=== PATIENT | male | born 1955 | race Caucasian/White ===

== ENCOUNTER 2017-09-09 10:48 | Inpatient (IN) | payer OTHER ==
[2017-09-09 11:48] LABS: BILIRUBIN,URINE SMALL (NEG); CLARITY,URINE TURBID; COLOR,URINE RED; GLUCOSE,URINE NEGATIVE (NEG); NITRITE,URINE POSITIVE (NEG); PROTEIN,URINE 100 mg/dL (NEG-TRACE)
[2017-09-09] MEDS: IV NORMAL SALINE 1000ML BAG 1,000 ML IV ×2 (11:59→15:23)
[2017-09-09 12:04] LABS: BACTERIA,URINE MODERATE /HPF (0-FEW); RBC,URINE >40 /HPF (0-2); WBC,URINE TNTC /HPF (0-4)
[2017-09-09 12:14] LABS: ADD MAN DIFF? NO
[2017-09-09 12:17] LABS: BASO % 1 % (0-3); EOS # 0.1 x10^3/uL (0.0-0.7); EOS % 1 % (0-3); HEMATOCRIT 23.2 % (39.0-53.0); HEMOGLOBIN 8.1 g/dL (13.0-17.5); LYMPH # 1.4 x10^3/uL (1.0-4.8); LYMPH % 16 % (24-48); MEAN CORPUSCULAR HEMOGLOBIN 33 pg (25-35); MEAN CORPUSCULAR HGB CONC 35 g/dL (31-37); MEAN CORPUSCULAR VOLUME 95 fL (79-100); MONO # 0.8 x10^3/uL (0.0-1.1); MONO % 9 % (0-9); NEUT # 6.6 x10^3uL (1.8-7.7); NEUT % 74 % (31-73); PLATELET COUNT 168 x10^3/uL (140-400); RED BLOOD COUNT 2.45 x10^6/uL (4.30-5.70); RED CELL DISTRIBUTION WIDTH 24.9 % (11.5-14.5)
[2017-09-09 12:26] LABS: INR 1.8 (0.8-1.1); PARTIAL THROMBOPLASTIN TIME 38 SEC (24-38); PROTHROMBIN TIME PATIENT 20.5 SEC (11.7-14.0)
[2017-09-09 12:27] LABS: ANION GAP 10 (6-14); BLOOD UREA NITROGEN 25 mg/dL (8-26); BUN/CREATININE RATIO 13 (6-20); CALCIUM 8.8 mg/dL (8.5-10.1); CARBON DIOXIDE 23 mmol/L (21-32); CHLORIDE 97 mmol/L (98-107); GFR 33.8; GLUCOSE 90 mg/dL (70-99); POTASSIUM 4.5 mmol/L (3.5-5.1); SODIUM 130 mmol/L (136-145)
[2017-09-09 12:35] LABS: LACTIC ACID 2.1 mmol/L (0.4-2.0)
[2017-09-09 12:41] LABS: ALBUMIN 2.3 g/dL (3.4-5.0); ALBUMIN/GLOBULIN RATIO 0.5 (1.0-1.7); ALK PHOS 99 U/L (46-116); ALT (SGPT) 27 U/L (16-63); AST (SGOT) 93 U/L (15-37); MAGNESIUM 1.5 mg/dL (1.8-2.4); TOTAL BILIRUBIN 3.9 mg/dL (0.2-1.0); TOTAL PROTEIN 7.3 g/dL (6.4-8.2)
[2017-09-09 12:42] LABS: TROPONINI < 0.017 ng/mL (0.000-0.055)
[2017-09-09 12:44] LABS: CKMB MASS 5.5 ng/mL (0.0-3.6)
[2017-09-09 12:44] LABS: NT-PRO BNP 1633 pg/mL (0-124)
[2017-09-09 12:45] LABS: CKMB INDEX 0.4 % (0-4); CREATINE KINASE 1254 U/L (39-308)
[2017-09-09 12:55] LABS: ANISOCYTOSIS MOD; PLT ESTIMATE ADEQUATE (ADEQUATE); POLYCHROMASIA SLIGHT
[2017-09-09] MEDS: PIPERACILLIN/TAZOBACTAM 4.5 GM in IV NORMAL SALINE 100ML 100 ML IV (14:33)
[2017-09-09] MEDS ORDERED: ACETAMINOPHEN 500 MG TABLET PO (15:00)
[2017-09-09] MEDS ORDERED: ENOXAPARIN 40 MG/0.4 ML SYRINGE. SQ (15:00)
[2017-09-09 15:24] LABS: BARBITURATES NEG (NEG); BENZODIAZEPINES POS (NEG); CANNABINOIDS NEG (NEG); COCAINE NEG (NEG); METHADONE NEG (NEG); OPIATES NEG (NEG); PHENCYCLIDINE NEG (NEG)
[2017-09-09] MEDS: MAGNESIUM SULFATE 2GM 50 ML IV (15:26)
[2017-09-09 15:27] LABS: AMPHETAMINE/METHAMPHETAMINE NEG (NEG); ETHANOL, URINE NEG (NEG)
[2017-09-09 15:30] LABS: ETHANOL < 10 mg/dL (0-10)
[2017-09-09 16:13] LABS: LACTIC ACID 1.5 mmol/L (0.4-2.0)
[2017-09-09] MEDS: VANCOMYCIN 125 MG/2.5 ML ORAL SOLUTION. PO ×2 (16:46→21:48)
[2017-09-09] MEDS: TEMAZEPAM 7.5 MG CAPSULE PO (22:05)
[2017-09-10] MEDS: IV NORMAL SALINE 1000ML BAG 1,000 ML IV ×3 (00:37→20:19)
[2017-09-10 05:19] LABS: ANION GAP 9 (6-14); BLOOD UREA NITROGEN 23 mg/dL (8-26); CARBON DIOXIDE 23 mmol/L (21-32); CHLORIDE 101 mmol/L (98-107); CREATINE KINASE 625 U/L (39-308); CREATININE 1.7 mg/dL (0.7-1.3); GFR 40.8; GLUCOSE 96 mg/dL (70-99); MAGNESIUM 1.7 mg/dL (1.8-2.4); POTASSIUM 4.1 mmol/L (3.5-5.1); SODIUM 133 mmol/L (136-145)
[2017-09-10 06:25] LABS: SEDIMENTATION RATE 32 (0-15)
[2017-09-10] MEDS: VANCOMYCIN 125 MG/2.5 ML ORAL SOLUTION. PO ×4 (10:57→20:18)
[2017-09-10] MEDS: LACTOBACILLUS RHAMNOSUS GG 1 CAPSULE. PO ×2 (10:57→20:18)
[2017-09-10] MEDS: FLUCONAZOLE 100 MG TABLET. PO (10:57)
[2017-09-10] MEDS: NYSTATIN TOPICAL POWDER 15GM BOTTLE. TP ×2 (10:58→21:00)
[2017-09-10] MEDS: MEROPENEM 500 MG in IV NORMAL SALINE 50ML 50 ML IV ×3 (10:58→22:50)
[2017-09-10 14:32] LABS: MRSA BY PCR Positive (Negative)
[2017-09-10] MEDS: ACETAMINOPHEN 500 MG TABLET PO ×2 (15:03→20:30)
[2017-09-10] MEDS: TEMAZEPAM 7.5 MG CAPSULE PO (20:30)
[2017-09-11] MEDS: MEROPENEM 500 MG in IV NORMAL SALINE 50ML 50 ML IV ×3 (06:12→21:26)
[2017-09-11] MEDS: IV NORMAL SALINE 1000ML BAG 1,000 ML IV ×2 (08:29→21:33)
[2017-09-11] MEDS: VANCOMYCIN 125 MG/2.5 ML ORAL SOLUTION. PO ×4 (08:30→21:26)
[2017-09-11] MEDS: FLUCONAZOLE 100 MG TABLET. PO (08:31)
[2017-09-11] MEDS: LACTOBACILLUS RHAMNOSUS GG 1 CAPSULE. PO ×2 (08:31→21:26)
[2017-09-11] MEDS: VITS A & D/LANOLIN TOPICAL OINTMENT 56GM TUBE. TP ×2 (14:47→23:00)
[2017-09-11] MEDS: NYSTATIN TOPICAL POWDER 15GM BOTTLE. TP ×4 (14:48→23:00)
[2017-09-11] MEDS: ACETAMINOPHEN 500 MG TABLET PO (17:56)
[2017-09-11] MEDS: TEMAZEPAM 7.5 MG CAPSULE PO (21:26)
[2017-09-12] MEDS: IV NORMAL SALINE 1000ML BAG 1,000 ML IV ×3 (05:57→21:29)
[2017-09-12] MEDS: MEROPENEM 500 MG in IV NORMAL SALINE 50ML 50 ML IV (05:57)
[2017-09-12 06:47] LABS: C DIFF BY PCR Positive (Negative)
[2017-09-12] MEDS: VANCOMYCIN 125 MG/2.5 ML ORAL SOLUTION. PO ×4 (08:55→21:28)
[2017-09-12] MEDS: NYSTATIN TOPICAL POWDER 15GM BOTTLE. TP ×2 (08:55→21:28)
[2017-09-12] MEDS: LACTOBACILLUS RHAMNOSUS GG 1 CAPSULE. PO ×2 (08:55→21:30)
[2017-09-12] MEDS: FLUCONAZOLE 100 MG TABLET. PO (08:55)
[2017-09-12] MEDS: ACETAMINOPHEN 500 MG TABLET PO (11:32)
[2017-09-12] MEDS: CEFTOLOZANE/TAZOBACTAM 1,500 MG in IV NORMAL SALINE 100ML 100 ML IV (14:45)
[2017-09-12] MEDS: TEMAZEPAM 7.5 MG CAPSULE PO (21:34)
[2017-09-12] MEDS: CEFTAZIDIME/AVIBACTAM 2.5 GM in IV NORMAL SALINE 250ML 250 ML IV (21:34)
[2017-09-13] MEDS: ACETAMINOPHEN 500 MG TABLET PO (00:18)
[2017-09-13] MEDS: MAG HYDROX/ALUMINUM HYD/SIMETH 30 ML ORAL.SUSP PO ×2 (00:18→19:58)
[2017-09-13] MEDS: ONDANSETRON PF 4 MG/2 ML VIAL. IV (00:19)
[2017-09-13] MEDS: CEFTAZIDIME/AVIBACTAM 2.5 GM in IV NORMAL SALINE 250ML 250 ML IV ×3 (05:35→22:07)
[2017-09-13] MEDS: MORPHINE SULFATE 2 MG/ML DISP.SYRIN. IV ×4 (05:35→19:59)
[2017-09-13] MEDS: LACTOBACILLUS RHAMNOSUS GG 1 CAPSULE. PO ×2 (09:29→20:02)
[2017-09-13] MEDS: NYSTATIN TOPICAL POWDER 15GM BOTTLE. TP ×2 (09:29→20:02)
[2017-09-13] MEDS: VANCOMYCIN 125 MG/2.5 ML ORAL SOLUTION. PO ×4 (09:29→20:01)
[2017-09-13] MEDS: FLUCONAZOLE 100 MG TABLET. PO (09:29)
[2017-09-13] MEDS: IV NORMAL SALINE 1000ML BAG 1,000 ML IV ×2 (09:30→18:09)
[2017-09-13] MEDS: TEMAZEPAM 7.5 MG CAPSULE PO (23:29)
[2017-09-14] MEDS: IV NORMAL SALINE 1000ML BAG 1,000 ML IV ×3 (06:23→20:05)
[2017-09-14] MEDS: CEFTAZIDIME/AVIBACTAM 2.5 GM in IV NORMAL SALINE 250ML 250 ML IV ×3 (06:23→23:00)
[2017-09-14] MEDS: FLUCONAZOLE 100 MG TABLET. PO (08:44)
[2017-09-14] MEDS: VANCOMYCIN 125 MG/2.5 ML ORAL SOLUTION. PO ×4 (08:44→20:06)
[2017-09-14] MEDS: LACTOBACILLUS RHAMNOSUS GG 1 CAPSULE. PO ×2 (08:44→20:06)
[2017-09-14] MEDS: NYSTATIN TOPICAL POWDER 15GM BOTTLE. TP ×2 (08:44→23:11)
[2017-09-14] MEDS: MORPHINE SULFATE 2 MG/ML DISP.SYRIN. IV ×3 (08:45→20:05)
[2017-09-14] MEDS: ONDANSETRON PF 4 MG/2 ML VIAL. IV (22:59)
[2017-09-14] MEDS: TEMAZEPAM 7.5 MG CAPSULE PO (23:10)
[2017-09-15] MEDS: CEFTAZIDIME/AVIBACTAM 2.5 GM in IV NORMAL SALINE 250ML 250 ML IV ×3 (05:45→21:20)
[2017-09-15] MEDS: FLUCONAZOLE 100 MG TABLET. PO (09:21)
[2017-09-15] MEDS: VANCOMYCIN 125 MG/2.5 ML ORAL SOLUTION. PO ×4 (09:21→21:20)
[2017-09-15] MEDS: NYSTATIN TOPICAL POWDER 15GM BOTTLE. TP ×2 (09:21→21:19)
[2017-09-15] MEDS: LACTOBACILLUS RHAMNOSUS GG 1 CAPSULE. PO ×2 (09:21→20:26)
[2017-09-15] MEDS: IV NORMAL SALINE 1000ML BAG 1,000 ML IV ×2 (10:36→21:20)
[2017-09-15] MEDS: MORPHINE SULFATE 2 MG/ML DISP.SYRIN. IV ×2 (15:50→20:26)
[2017-09-15] MEDS: ONDANSETRON PF 4 MG/2 ML VIAL. IV (20:26)
[2017-09-16] MEDS: MORPHINE SULFATE 2 MG/ML DISP.SYRIN. IV ×4 (02:38→20:09)
[2017-09-16] MEDS: CEFTAZIDIME/AVIBACTAM 2.5 GM in IV NORMAL SALINE 250ML 250 ML IV ×3 (06:07→21:53)
[2017-09-16] MEDS: IV NORMAL SALINE 1000ML BAG 1,000 ML IV ×2 (07:00→16:04)
[2017-09-16] MEDS: LACTOBACILLUS RHAMNOSUS GG 1 CAPSULE. PO ×2 (08:22→20:08)
[2017-09-16] MEDS: FLUCONAZOLE 100 MG TABLET. PO (08:22)
[2017-09-16] MEDS: VANCOMYCIN 125 MG/2.5 ML ORAL SOLUTION. PO ×4 (08:22→20:09)
[2017-09-16] MEDS: NYSTATIN TOPICAL POWDER 15GM BOTTLE. TP ×2 (08:26→21:53)
[2017-09-16 13:26] LABS: ALBUMIN 1.8 g/dL (3.4-5.0); ALBUMIN/GLOBULIN RATIO 0.4 (1.0-1.7); ALK PHOS 151 U/L (46-116); ALT (SGPT) 20 U/L (16-63); ANION GAP 4 (6-14); AST (SGOT) 37 U/L (15-37); BLOOD UREA NITROGEN 17 mg/dL (8-26); BUN/CREATININE RATIO 13 (6-20); CARBON DIOXIDE 25 mmol/L (21-32); CHLORIDE 103 mmol/L (98-107); CREATININE 1.3 mg/dL (0.7-1.3); GFR 55.6; GLUCOSE 139 mg/dL (70-99); POTASSIUM 4.7 mmol/L (3.5-5.1); SODIUM 132 mmol/L (136-145); TOTAL BILIRUBIN 1.2 mg/dL (0.2-1.0); TOTAL PROTEIN 6.8 g/dL (6.4-8.2)
[2017-09-16 13:33] LABS: HEMATOCRIT 25.8 % (39.0-53.0); HEMOGLOBIN 8.7 g/dL (13.0-17.5); MEAN CORPUSCULAR HEMOGLOBIN 33 pg (25-35); MEAN CORPUSCULAR HGB CONC 34 g/dL (31-37); MEAN CORPUSCULAR VOLUME 99 fL (79-100); PLATELET COUNT 162 x10^3/uL (140-400); RED BLOOD COUNT 2.61 x10^6/uL (4.30-5.70); RED CELL DISTRIBUTION WIDTH 24.2 % (11.5-14.5); WHITE BLOOD COUNT 6.9 x10^3/uL (4.0-11.0)
[2017-09-16] MEDS: TEMAZEPAM 7.5 MG CAPSULE PO (20:09)
[2017-09-16] MEDS: FUROSEMIDE 20 MG/2 ML VIAL. IVP (21:52)
[2017-09-17] MEDS: MORPHINE SULFATE 2 MG/ML DISP.SYRIN. IV ×4 (00:32→21:26)
[2017-09-17] MEDS: CEFTAZIDIME/AVIBACTAM 2.5 GM in IV NORMAL SALINE 250ML 250 ML IV ×3 (06:03→22:36)
[2017-09-17] MEDS: FLUCONAZOLE 100 MG TABLET. PO (08:46)
[2017-09-17] MEDS: VANCOMYCIN 125 MG/2.5 ML ORAL SOLUTION. PO ×4 (08:46→21:17)
[2017-09-17] MEDS: LACTOBACILLUS RHAMNOSUS GG 1 CAPSULE. PO ×2 (08:46→21:17)
[2017-09-17] MEDS: NYSTATIN TOPICAL POWDER 15GM BOTTLE. TP ×2 (09:00→21:30)
[2017-09-17] MEDS: FUROSEMIDE 20 MG TABLET PO (17:59)
[2017-09-17] MEDS: MAG HYDROX/ALUMINUM HYD/SIMETH 30 ML ORAL.SUSP PO (21:17)
[2017-09-18] MEDS: MORPHINE SULFATE 2 MG/ML DISP.SYRIN. IV ×4 (01:32→22:12)
[2017-09-18] MEDS: CEFTAZIDIME/AVIBACTAM 2.5 GM in IV NORMAL SALINE 250ML 250 ML IV ×3 (06:08→21:25)
[2017-09-18] MEDS: LACTOBACILLUS RHAMNOSUS GG 1 CAPSULE. PO ×2 (09:36→21:24)
[2017-09-18] MEDS: FUROSEMIDE 20 MG TABLET PO ×2 (09:37→17:52)
[2017-09-18] MEDS: FLUCONAZOLE 100 MG TABLET. PO (09:37)
[2017-09-18] MEDS: VANCOMYCIN 125 MG/2.5 ML ORAL SOLUTION. PO ×4 (09:37→21:24)
[2017-09-18] MEDS: NYSTATIN TOPICAL POWDER 15GM BOTTLE. TP ×2 (09:37→21:25)
[2017-09-18 11:58] LABS: HEMATOCRIT 23.2 % (39.0-53.0); MEAN CORPUSCULAR HEMOGLOBIN 34 pg (25-35); MEAN CORPUSCULAR HGB CONC 34 g/dL (31-37); MEAN CORPUSCULAR VOLUME 97 fL (79-100); PLATELET COUNT 152 x10^3/uL (140-400); RED BLOOD COUNT 2.38 x10^6/uL (4.30-5.70); RED CELL DISTRIBUTION WIDTH 23.8 % (11.5-14.5); WHITE BLOOD COUNT 5.7 x10^3/uL (4.0-11.0)
[2017-09-18 12:05] LABS: ANION GAP 4 (6-14); BLOOD UREA NITROGEN 16 mg/dL (8-26); BUN/CREATININE RATIO 12 (6-20); CALCIUM 8.3 mg/dL (8.5-10.1); CARBON DIOXIDE 27 mmol/L (21-32); CHLORIDE 103 mmol/L (98-107); CREATININE 1.3 mg/dL (0.7-1.3); GFR 55.6; GLUCOSE 124 mg/dL (70-99); POTASSIUM 4.5 mmol/L (3.5-5.1); SODIUM 134 mmol/L (136-145)
[2017-09-18 12:11] LABS: ALBUMIN 1.6 g/dL (3.4-5.0); ALBUMIN/GLOBULIN RATIO 0.3 (1.0-1.7); ALK PHOS 124 U/L (46-116); ALT (SGPT) 15 U/L (16-63); AST (SGOT) 32 U/L (15-37); TOTAL BILIRUBIN 1.1 mg/dL (0.2-1.0); TOTAL PROTEIN 6.2 g/dL (6.4-8.2)
[2017-09-19] MEDS: CEFTAZIDIME/AVIBACTAM 2.5 GM in IV NORMAL SALINE 250ML 250 ML IV (04:30)
[2017-09-19] MEDS: MORPHINE SULFATE 2 MG/ML DISP.SYRIN. IV ×5 (04:30→22:41)
[2017-09-19] MEDS: LACTOBACILLUS RHAMNOSUS GG 1 CAPSULE. PO ×2 (08:23→20:59)
[2017-09-19] MEDS: FLUCONAZOLE 100 MG TABLET. PO (08:23)
[2017-09-19] MEDS: FUROSEMIDE 20 MG TABLET PO ×2 (08:24→15:58)
[2017-09-19] MEDS: VANCOMYCIN 125 MG/2.5 ML ORAL SOLUTION. PO ×4 (08:24→20:59)
[2017-09-19] MEDS: NYSTATIN TOPICAL POWDER 15GM BOTTLE. TP ×2 (08:24→20:59)
[2017-09-19] MEDS: CEFTOLOZANE/TAZOBACTAM 1,500 MG in IV NORMAL SALINE 100ML 100 ML IV ×2 (14:07→22:31)
[2017-09-19 20:36] LABS: ALBUMIN 1.8 g/dL (3.4-5.0); ALBUMIN/GLOBULIN RATIO 0.4 (1.0-1.7); ALK PHOS 148 U/L (46-116); ALT (SGPT) 15 U/L (16-63); ANION GAP 5 (6-14); AST (SGOT) 30 U/L (15-37); BLOOD UREA NITROGEN 18 mg/dL (8-26); BUN/CREATININE RATIO 13 (6-20); CALCIUM 8.3 mg/dL (8.5-10.1); CARBON DIOXIDE 27 mmol/L (21-32); CHLORIDE 102 mmol/L (98-107); CREATININE 1.4 mg/dL (0.7-1.3); GLUCOSE 123 mg/dL (70-99); POTASSIUM 4.2 mmol/L (3.5-5.1); SODIUM 134 mmol/L (136-145); TOTAL BILIRUBIN 1.1 mg/dL (0.2-1.0); TOTAL PROTEIN 6.7 g/dL (6.4-8.2)
[2017-09-20] MEDS: CEFTOLOZANE/TAZOBACTAM 1,500 MG in IV NORMAL SALINE 100ML 100 ML IV ×3 (06:13→22:32)
[2017-09-20] MEDS: MORPHINE SULFATE 2 MG/ML DISP.SYRIN. IV ×5 (06:15→22:42)
[2017-09-20] MEDS: LACTOBACILLUS RHAMNOSUS GG 1 CAPSULE. PO ×2 (08:58→22:32)
[2017-09-20] MEDS: VANCOMYCIN 125 MG/2.5 ML ORAL SOLUTION. PO ×4 (08:59→22:33)
[2017-09-20] MEDS: FUROSEMIDE 40 MG/4 ML VIAL. IVP ×2 (08:59→14:40)
[2017-09-20] MEDS: FLUCONAZOLE 100 MG TABLET. PO (08:59)
[2017-09-20] MEDS: NYSTATIN TOPICAL POWDER 15GM BOTTLE. TP ×2 (09:00→22:34)
[2017-09-20 15:29] LABS: ANION GAP 6 (6-14); BLOOD UREA NITROGEN 17 mg/dL (8-26); BUN/CREATININE RATIO 13 (6-20); CALCIUM 8.5 mg/dL (8.5-10.1); CARBON DIOXIDE 27 mmol/L (21-32); CHLORIDE 102 mmol/L (98-107); CREATININE 1.3 mg/dL (0.7-1.3); GFR 55.6; GLUCOSE 141 mg/dL (70-99); SODIUM 135 mmol/L (136-145)
[2017-09-20 15:35] LABS: ALBUMIN 1.7 g/dL (3.4-5.0); ALBUMIN/GLOBULIN RATIO 0.4 (1.0-1.7); ALK PHOS 128 U/L (46-116); ALT (SGPT) 15 U/L (16-63); AST (SGOT) 29 U/L (15-37); TOTAL PROTEIN 6.5 g/dL (6.4-8.2)
[2017-09-21] MEDS: TEMAZEPAM 7.5 MG CAPSULE PO (01:14)
[2017-09-21] MEDS: CEFTOLOZANE/TAZOBACTAM 1,500 MG in IV NORMAL SALINE 100ML 100 ML IV ×3 (06:28→21:29)
[2017-09-21] MEDS: VANCOMYCIN 125 MG/2.5 ML ORAL SOLUTION. PO ×4 (07:48→20:17)
[2017-09-21] MEDS: FLUCONAZOLE 100 MG TABLET. PO (07:48)
[2017-09-21] MEDS: NYSTATIN TOPICAL POWDER 15GM BOTTLE. TP ×2 (07:48→20:17)
[2017-09-21] MEDS: LACTOBACILLUS RHAMNOSUS GG 1 CAPSULE. PO ×2 (07:48→20:17)
[2017-09-21] MEDS: FUROSEMIDE 40 MG/4 ML VIAL. IVP ×2 (08:21→11:36)
[2017-09-21] MEDS: MORPHINE SULFATE 2 MG/ML DISP.SYRIN. IV ×4 (11:37→20:18)
[2017-09-22] MEDS: MORPHINE SULFATE 2 MG/ML DISP.SYRIN. IV ×3 (05:39→13:52)
[2017-09-22] MEDS: CEFTOLOZANE/TAZOBACTAM 1,500 MG in IV NORMAL SALINE 100ML 100 ML IV ×2 (05:40→13:35)
[2017-09-22 08:42] LABS: ADD MAN DIFF? NO
[2017-09-22 08:50] LABS: BASO # 0.1 x10^3/uL (0.0-0.2); BASO % 1 % (0-3); EOS # 0.2 x10^3/uL (0.0-0.7); EOS % 4 % (0-3); HEMATOCRIT 22.5 % (39.0-53.0); HEMOGLOBIN 7.6 g/dL (13.0-17.5); LYMPH # 2.3 x10^3/uL (1.0-4.8); LYMPH % 37 % (24-48); MEAN CORPUSCULAR HEMOGLOBIN 33 pg (25-35); MEAN CORPUSCULAR HGB CONC 34 g/dL (31-37); MEAN CORPUSCULAR VOLUME 98 fL (79-100); MONO # 0.6 x10^3/uL (0.0-1.1); MONO % 9 % (0-9); NEUT # 3.1 x10^3uL (1.8-7.7); NEUT % 49 % (31-73); PLATELET COUNT 139 x10^3/uL (140-400); RED BLOOD COUNT 2.31 x10^6/uL (4.30-5.70); RED CELL DISTRIBUTION WIDTH 22.7 % (11.5-14.5); WHITE BLOOD COUNT 6.2 x10^3/uL (4.0-11.0)
[2017-09-22] MEDS: FLUCONAZOLE 100 MG TABLET. PO (09:19)
[2017-09-22] MEDS: VANCOMYCIN 125 MG/2.5 ML ORAL SOLUTION. PO ×2 (09:19→13:35)
[2017-09-22] MEDS: LACTOBACILLUS RHAMNOSUS GG 1 CAPSULE. PO (09:19)
[2017-09-22] MEDS: FUROSEMIDE 40 MG/4 ML VIAL. IVP ×2 (09:19→13:51)
[2017-09-22] MEDS: NYSTATIN TOPICAL POWDER 15GM BOTTLE. TP (09:26)
[2017-09-22 09:39] LABS: ALBUMIN 1.6 g/dL (3.4-5.0); ALBUMIN/GLOBULIN RATIO 0.3 (1.0-1.7); ALK PHOS 122 U/L (46-116); ALT (SGPT) 14 U/L (16-63); ANION GAP 6 (6-14); AST (SGOT) 30 U/L (15-37); BLOOD UREA NITROGEN 16 mg/dL (8-26); BUN/CREATININE RATIO 13 (6-20); CALCIUM 8.3 mg/dL (8.5-10.1); CARBON DIOXIDE 26 mmol/L (21-32); CHLORIDE 104 mmol/L (98-107); CREATINE KINASE 25 U/L (39-308); CREATININE 1.2 mg/dL (0.7-1.3); GLUCOSE 107 mg/dL (70-99); POTASSIUM 4.1 mmol/L (3.5-5.1); SODIUM 136 mmol/L (136-145); TOTAL BILIRUBIN 1.1 mg/dL (0.2-1.0); TOTAL PROTEIN 6.2 g/dL (6.4-8.2)
[2017-09-22 11:49] LABS: PLT ESTIMATE ADEQUATE (ADEQUATE)
[2017-09-22 11:50] LABS: ANISOCYTOSIS MOD
== END 2017-09-22 16:20 | DRG 871 ==
LOC: 5 SOUTH 09-10 12:15 → ER 10:48 → 1 WEST ICU 15:10
DX: A41.9 Sepsis, unspecified organism (principal); N17.0 Acute kidney failure with tubular necrosis; G93.40 Encephalopathy, unspecified; A04.72 Enterocolitis due to Clostridium difficile, not specified as recurrent; E87.1 Hypo-osmolality and hyponatremia; M62.82 Rhabdomyolysis; N39.0 Urinary tract infection, site not specified; B37.2 Candidiasis of skin and nail; B96.5 Pseudomonas (aeruginosa) (mallei) (pseudomallei) as the cause of diseases classified elsewhere; D64.9 Anemia, unspecified; E83.42 Hypomagnesemia; E86.0 Dehydration; L89.159 Pressure ulcer of sacral region, unspecified stage; M46.02 Spinal enthesopathy, cervical region; N40.0 Benign prostatic hyperplasia without lower urinary tract symptoms; F41.9 Anxiety disorder, unspecified; Z16.12 Extended spectrum beta lactamase (ESBL) resistance; Z51.5 Encounter for palliative care; Z66 Do not resuscitate; Z96.612 Presence of left artificial shoulder joint; Z96.649 Presence of unspecified artificial hip joint; R62.7 Adult failure to thrive; Z22.322 Carrier or suspected carrier of Methicillin resistant Staphylococcus aureus; Z78.9 Other specified health status
CPT/HCPCS: 36415; 51702; 70450; 71045; 72125; 72170; 73030; 80048; 80053; 80307; 81001; 82550; 82553; 83605; 83735; 83880; 84484; 85025; 85027; 85610; 85651; 85730; 87040; 87086; 87186; 87324; 87641; 92610-GN; 93005; 96361; 96365; 96366; 96368; 97110-GO; 97110-GP; 97116-GP; 97162-GP; 97166-GO; 97530-GO; 97530-GP; 97535-GO; 99285-25; G0480; J1940; J2185; J2270; J2405; J2543; J3475; J7030; J7050

== ENCOUNTER 2017-10-11 18:43 | Inpatient (IN) | payer OTHER ==
[2017-10-11 19:12] LABS: ADD MAN DIFF? NO
[2017-10-11 19:14] LABS: BASO % 1 % (0-3); EOS # 0.1 x10^3/uL (0.0-0.7); EOS % 2 % (0-3); HEMATOCRIT 23.9 % (39.0-53.0); HEMOGLOBIN 8.5 g/dL (13.0-17.5); LYMPH # 1.6 x10^3/uL (1.0-4.8); LYMPH % 38 % (24-48); MEAN CORPUSCULAR HEMOGLOBIN 34 pg (25-35); MEAN CORPUSCULAR HGB CONC 36 g/dL (31-37); MEAN CORPUSCULAR VOLUME 96 fL (79-100); MONO # 0.4 x10^3/uL (0.0-1.1); MONO % 9 % (0-9); NEUT # 2.1 x10^3uL (1.8-7.7); NEUT % 51 % (31-73); PLATELET COUNT 199 x10^3/uL (140-400); RED BLOOD COUNT 2.49 x10^6/uL (4.30-5.70); RED CELL DISTRIBUTION WIDTH 16.7 % (11.5-14.5); WHITE BLOOD COUNT 4.1 x10^3/uL (4.0-11.0)
[2017-10-11 19:21] LABS: INR 1.8 (0.8-1.1); PARTIAL THROMBOPLASTIN TIME 40 SEC (24-38); PROTHROMBIN TIME PATIENT 20.3 SEC (11.7-14.0)
[2017-10-11 19:31] LABS: ANION GAP 13 (6-14); BLOOD UREA NITROGEN 31 mg/dL (8-26); CALCIUM 8.9 mg/dL (8.5-10.1); CARBON DIOXIDE 20 mmol/L (21-32); CHLORIDE 101 mmol/L (98-107); CREATININE 1.4 mg/dL (0.7-1.3); GLUCOSE 117 mg/dL (70-99); POTASSIUM 3.5 mmol/L (3.5-5.1); SODIUM 134 mmol/L (136-145)
[2017-10-11 19:35] LABS: CREATINE KINASE 280 U/L (39-308)
[2017-10-11 19:37] LABS: ACETAMIN < 2 mcg/ml (10-30); ETHANOL 160 mg/dL (0-10); SALIC < 2.8 mg/dL (2.8-20.0)
[2017-10-11 19:37] LABS: AMMONIA 35 mcmol/L (11-34)
[2017-10-11 19:39] LABS: TROPONINI < 0.017 ng/mL (0.000-0.055)
[2017-10-11 19:43] LABS: NT-PRO BNP 339 pg/mL (0-124)
[2017-10-11 19:44] LABS: ALBUMIN 2.2 g/dL (3.4-5.0); ALK PHOS 115 U/L (46-116); ALT (SGPT) 24 U/L (16-63); AST (SGOT) 59 U/L (15-37); DIRECT BILIRUBIN 0.9 mg/dL (0.0-0.2); TOTAL BILIRUBIN 1.5 mg/dL (0.2-1.0); TOTAL PROTEIN 6.9 g/dL (6.4-8.2)
[2017-10-11 19:52] LABS: LACTIC ACID 4.4 mmol/L (0.4-2.0)
[2017-10-11] MEDS: IV NORMAL SALINE 1000ML BAG 1,000 ML IV ×2 (20:41→21:30)
[2017-10-11] MEDS ORDERED: ONDANSETRON PF 4 MG/2 ML VIAL. IV (21:00)
[2017-10-11] MEDS: PIPERACILLIN/TAZOBACTAM 3.375 GM in IV NORMAL SALINE 50ML 50 ML IV (21:05)
[2017-10-11 21:22] LABS: BILIRUBIN,URINE NEGATIVE (NEG); CLARITY,URINE CLOUDY; COLOR,URINE YELLOW; GLUCOSE,URINE NEGATIVE (NEG); NITRITE,URINE NEGATIVE (NEG); PROTEIN,URINE 30 mg/dL (NEG-TRACE)
[2017-10-11 21:30] LABS: BARBITURATES NEG (NEG); BENZODIAZEPINES POS (NEG); CANNABINOIDS NEG (NEG); COCAINE NEG (NEG); METHADONE NEG (NEG); OPIATES NEG (NEG); PHENCYCLIDINE NEG (NEG)
[2017-10-11 21:31] LABS: AMPHETAMINE/METHAMPHETAMINE NEG (NEG); ETHANOL, URINE POS (NEG)
[2017-10-11 21:33] LABS: BACTERIA,URINE MOD /HPF (0-FEW); RBC,URINE >40 /HPF (0-2); WBC,URINE TNTC /HPF (0-4)
[2017-10-11] MEDS: VANCOMYCIN 2 GM in IV NORMAL SALINE 500ML BAG 500 ML IV (23:04)
[2017-10-11 23:19] LABS: LACTIC ACID 3.7 mmol/L (0.4-2.0)
[2017-10-11] MEDS: VANCOMYCIN PER PHARMACY MC (23:48)
[2017-10-12] MEDS: PIPERACILLIN/TAZOBACTAM 3.375 GM in IV NORMAL SALINE 50ML 50 ML IV ×2 (01:05→06:01)
[2017-10-12] MEDS: IV NORMAL SALINE 1000ML BAG 1,000 ML IV ×4 (01:38→19:46)
[2017-10-12 07:23] LABS: TROPONINI < 0.017 ng/mL (0.000-0.055)
[2017-10-12] MEDS ORDERED: ONDANSETRON PF 4 MG/2 ML VIAL. IV (08:30)
[2017-10-12] MEDS: LACTOBACILLUS RHAMNOSUS GG 1 CAPSULE. PO ×2 (09:57→20:20)
[2017-10-12] MEDS: FLUCONAZOLE 100 MG TABLET. PO (09:57)
[2017-10-12] MEDS: HEPARIN PF for SUB-Q USE 5,000 UNIT/0.5 ML VIAL. SQ ×3 (09:58→20:32)
[2017-10-12 10:36] LABS: SEDIMENTATION RATE 21 (0-15)
[2017-10-12] MEDS: VANCOMYCIN PER PHARMACY MC ×3 (10:38→10:56)
[2017-10-12] MEDS: THIAMINE 100 MG TABLET. PO (11:00)
[2017-10-12] MEDS: VANCOMYCIN 2 GM in IV NORMAL SALINE 500ML BAG 500 ML IV (11:00)
[2017-10-12] MEDS: FOLIC ACID 1 MG TABLET. PO (11:01)
[2017-10-12] MEDS: MULTIVITAMIN with MINERAL TABLET. PO (11:01)
[2017-10-12] MEDS: PIPERACILLIN/TAZOBACTAM 4.5 GM in IV NORMAL SALINE 100ML 100 ML IV ×2 (14:39→18:10)
[2017-10-12] MEDS: ACETAMINOPHEN 325 MG TABLET. PO (18:11)
[2017-10-12 20:14] LABS: MRSA BY PCR Negative (Negative)
[2017-10-12] MEDS: diazePAM 2 MG TABLET PO (20:23)
[2017-10-13] MEDS: VANCOMYCIN 2 GM in IV NORMAL SALINE 500ML BAG 500 ML IV ×2 (00:06→11:00)
[2017-10-13] MEDS: PIPERACILLIN/TAZOBACTAM 4.5 GM in IV NORMAL SALINE 100ML 100 ML IV ×5 (01:00→23:45)
[2017-10-13] MEDS: HEPARIN PF for SUB-Q USE 5,000 UNIT/0.5 ML VIAL. SQ ×3 (06:17→21:35)
[2017-10-13 06:24] LABS: ANION GAP 9 (6-14); BLOOD UREA NITROGEN 24 mg/dL (8-26); CALCIUM 7.6 mg/dL (8.5-10.1); CARBON DIOXIDE 23 mmol/L (21-32); CHLORIDE 102 mmol/L (98-107); CREATININE 1.4 mg/dL (0.7-1.3); GLUCOSE 83 mg/dL (70-99); POTASSIUM 3.6 mmol/L (3.5-5.1); SODIUM 134 mmol/L (136-145)
[2017-10-13 06:35] LABS: LACTIC ACID 0.9 mmol/L (0.4-2.0)
[2017-10-13] MEDS: LACTOBACILLUS RHAMNOSUS GG 1 CAPSULE. PO ×2 (08:45→21:10)
[2017-10-13] MEDS: MULTIVITAMIN with MINERAL TABLET. PO (08:45)
[2017-10-13] MEDS: FOLIC ACID 1 MG TABLET. PO (08:45)
[2017-10-13] MEDS: THIAMINE 100 MG TABLET. PO (08:45)
[2017-10-13] MEDS: FLUCONAZOLE 100 MG TABLET. PO (08:49)
[2017-10-13 11:36] LABS: VANC TR 27.5 mcg/mL (10.0-20.0)
[2017-10-13 12:02] LABS: MAGNESIUM 1.1 mg/dL (1.8-2.4)
[2017-10-13] MEDS: ASCORBIC ACID 500 MG TABLET PO (13:16)
[2017-10-13] MEDS: POTASSIUM CHLORIDE 20 MEQ TABLET.ER. PO (13:16)
[2017-10-13] MEDS: VANCOMYCIN PER PHARMACY MC (13:37)
[2017-10-13] MEDS: ACETAMINOPHEN 500 MG TABLET PO ×2 (15:23→21:10)
[2017-10-13] MEDS: MAGNESIUM SULFATE 4GM 100 ML IV (15:24)
[2017-10-13] MEDS: diazePAM 2 MG TABLET PO (21:24)
[2017-10-14] MEDS: diazePAM 2 MG TABLET PO ×2 (00:03→20:16)
[2017-10-14] MEDS: VANCOMYCIN 2 GM in IV NORMAL SALINE 500ML BAG 500 ML IV (00:04)
[2017-10-14] MEDS: PIPERACILLIN/TAZOBACTAM 4.5 GM in IV NORMAL SALINE 100ML 100 ML IV ×4 (06:37→23:42)
[2017-10-14] MEDS: HEPARIN PF for SUB-Q USE 5,000 UNIT/0.5 ML VIAL. SQ ×3 (06:43→21:44)
[2017-10-14 07:39] LABS: ADD MAN DIFF? NO
[2017-10-14 07:45] LABS: BASO # 0.1 x10^3/uL (0.0-0.2); BASO % 1 % (0-3); EOS # 0.4 x10^3/uL (0.0-0.7); EOS % 7 % (0-3); HEMATOCRIT 23.5 % (39.0-53.0); HEMOGLOBIN 8.3 g/dL (13.0-17.5); LYMPH # 2.5 x10^3/uL (1.0-4.8); LYMPH % 40 % (24-48); MEAN CORPUSCULAR HEMOGLOBIN 34 pg (25-35); MEAN CORPUSCULAR HGB CONC 35 g/dL (31-37); MEAN CORPUSCULAR VOLUME 97 fL (79-100); MONO # 0.7 x10^3/uL (0.0-1.1); MONO % 11 % (0-9); NEUT # 2.5 x10^3uL (1.8-7.7); NEUT % 40 % (31-73); PLATELET COUNT 142 x10^3/uL (140-400); RED BLOOD COUNT 2.42 x10^6/uL (4.30-5.70); RED CELL DISTRIBUTION WIDTH 17.1 % (11.5-14.5); WHITE BLOOD COUNT 6.2 x10^3/uL (4.0-11.0)
[2017-10-14 08:41] LABS: ANION GAP 9 (6-14); BLOOD UREA NITROGEN 24 mg/dL (8-26); CALCIUM 8.1 mg/dL (8.5-10.1); CARBON DIOXIDE 22 mmol/L (21-32); CHLORIDE 103 mmol/L (98-107); CREATININE 1.5 mg/dL (0.7-1.3); GFR 47.1; GLUCOSE 88 mg/dL (70-99); MAGNESIUM 1.9 mg/dL (1.8-2.4); POTASSIUM 3.8 mmol/L (3.5-5.1); SODIUM 134 mmol/L (136-145)
[2017-10-14] MEDS: FLUCONAZOLE 100 MG TABLET. PO (08:51)
[2017-10-14] MEDS: FOLIC ACID 1 MG TABLET. PO (08:51)
[2017-10-14] MEDS: LACTOBACILLUS RHAMNOSUS GG 1 CAPSULE. PO ×2 (08:51→20:16)
[2017-10-14] MEDS: THIAMINE 100 MG TABLET. PO (08:51)
[2017-10-14] MEDS: ASCORBIC ACID 500 MG TABLET PO (08:51)
[2017-10-14] MEDS: MULTIVITAMIN with MINERAL TABLET. PO (08:51)
[2017-10-14] MEDS: ACETAMINOPHEN 500 MG TABLET PO ×2 (08:57→17:36)
[2017-10-14] MEDS: POTASSIUM CHLORIDE 20 MEQ TABLET.ER. PO (13:51)
[2017-10-14] MEDS: VANCOMYCIN PER PHARMACY MC (14:15)
[2017-10-14] MEDS: FUROSEMIDE 40 MG/4 ML VIAL. IVP (14:40)
[2017-10-14] MEDS: ZOLPIDEM 5 MG TABLET. PO (21:08)
[2017-10-15 00:32] LABS: VANC TR 22.1 mcg/mL (10.0-20.0)
[2017-10-15] MEDS: VANCOMYCIN 2 GM in IV NORMAL SALINE 500ML BAG 500 ML IV (01:18)
[2017-10-15] MEDS: VANCOMYCIN PER PHARMACY MC (02:06)
[2017-10-15] MEDS: ACETAMINOPHEN 500 MG TABLET PO ×2 (03:51→12:59)
[2017-10-15] MEDS: PIPERACILLIN/TAZOBACTAM 4.5 GM in IV NORMAL SALINE 100ML 100 ML IV (05:31)
[2017-10-15] MEDS: HEPARIN PF for SUB-Q USE 5,000 UNIT/0.5 ML VIAL. SQ (05:35)
[2017-10-15] MEDS: THIAMINE 100 MG TABLET. PO (08:39)
[2017-10-15] MEDS: FLUCONAZOLE 100 MG TABLET. PO (08:39)
[2017-10-15] MEDS: MULTIVITAMIN with MINERAL TABLET. PO (08:39)
[2017-10-15] MEDS: LACTOBACILLUS RHAMNOSUS GG 1 CAPSULE. PO (08:39)
[2017-10-15] MEDS: FOLIC ACID 1 MG TABLET. PO (08:39)
[2017-10-15] MEDS: ASCORBIC ACID 500 MG TABLET PO (08:39)
[2017-10-15 09:25] LABS: ADD MAN DIFF? NO
[2017-10-15 09:33] LABS: BASO # 0.1 x10^3/uL (0.0-0.2); BASO % 1 % (0-3); EOS # 0.3 x10^3/uL (0.0-0.7); EOS % 6 % (0-3); HEMATOCRIT 24.5 % (39.0-53.0); HEMOGLOBIN 8.5 g/dL (13.0-17.5); LYMPH # 1.9 x10^3/uL (1.0-4.8); LYMPH % 33 % (24-48); MEAN CORPUSCULAR HEMOGLOBIN 34 pg (25-35); MEAN CORPUSCULAR HGB CONC 35 g/dL (31-37); MEAN CORPUSCULAR VOLUME 98 fL (79-100); MONO # 0.5 x10^3/uL (0.0-1.1); MONO % 8 % (0-9); NEUT % 52 % (31-73); PLATELET COUNT 143 x10^3/uL (140-400); RED BLOOD COUNT 2.49 x10^6/uL (4.30-5.70); RED CELL DISTRIBUTION WIDTH 17.2 % (11.5-14.5); WHITE BLOOD COUNT 5.8 x10^3/uL (4.0-11.0)
[2017-10-15 09:44] LABS: ANION GAP 8 (6-14); BLOOD UREA NITROGEN 24 mg/dL (8-26); CALCIUM 8.5 mg/dL (8.5-10.1); CARBON DIOXIDE 24 mmol/L (21-32); CHLORIDE 102 mmol/L (98-107); CREATININE 1.5 mg/dL (0.7-1.3); GFR 47.1; GLUCOSE 150 mg/dL (70-99); POTASSIUM 3.7 mmol/L (3.5-5.1); SODIUM 134 mmol/L (136-145)
[2017-10-15] MEDS ORDERED: VANCOMYCIN 1.75 GM in IV NORMAL SALINE 500ML BAG 500 ML IV (12:00)
== END 2017-10-15 15:00 | disposition home health service (06) | DRG 871 ==
LOC: 6 SOUTH 10-12 12:39 → ER 18:43 → 1 WEST ICU 20:40
DX: A41.9 Sepsis, unspecified organism (principal); N17.0 Acute kidney failure with tubular necrosis; E87.1 Hypo-osmolality and hyponatremia; J98.11 Atelectasis; N39.0 Urinary tract infection, site not specified; Z66 Do not resuscitate; Z51.5 Encounter for palliative care; D64.9 Anemia, unspecified; E83.42 Hypomagnesemia; F10.20 Alcohol dependence, uncomplicated; F41.9 Anxiety disorder, unspecified; I50.9 Heart failure, unspecified; I11.0 Hypertensive heart disease with heart failure; K72.90 Hepatic failure, unspecified without coma; M32.9 Systemic lupus erythematosus, unspecified; R62.7 Adult failure to thrive; W08.XXXA Fall from other furniture, initial encounter; Z96.649 Presence of unspecified artificial hip joint; Z96.612 Presence of left artificial shoulder joint; Y90.6 Blood alcohol level of 120-199 mg/100 ml; T68.XXXA Hypothermia, initial encounter; F13.10 Sedative, hypnotic or anxiolytic abuse, uncomplicated; Y92.009 Unspecified place in unspecified non-institutional (private) residence as the place of occurrence of the external cause; Y93.89 Activity, other specified; Y99.8 Other external cause status
CPT/HCPCS: 36415; 70450; 71045; 80048; 80076; 80202; 80307; 80329; 81001; 82140; 82550; 83605; 83735; 83880; 84484; 85025; 85610; 85651; 85730; 87040; 87086; 87186; 87641; 93005; 93306; 96361; 96365; 97110-GO; 97116-GP; 97163-GP; 97166-GO; 97530-GP; 97535-GO; 99285; 99285-25; G0480; G6039; J1940; J1956; J2543; J3370; J3475; J7030; J7040